=== PATIENT | male | born 1945 | race Caucasian/White ===

== ENCOUNTER → 2018-10-28 17:14 | Outpatient (REF) | payer MEDICARE, MEDICAID, SELFPAY ==
[2018-10-28 17:38] LABS: Alanine Aminotransferase 42 IU/L (21-72); Aspartate Aminotransferase 32 IU/L (17-59); Blood Urea Nitrogen 36 mg/dL (9-20); Estimated Glomerular Filt Rate > 60.0 mL/min (>60)
== END ==
LOC: LAB 17:14
PROVIDERS: Family Provider Family Medicine; PCP Nurse Practitioner; Visit Provider Physician Assistant Medical
DX: B35.3 Tinea pedis (principal); M35.4 Diffuse (eosinophilic) fasciitis
CPT/HCPCS: 82565; 84450; 84460; 84520

== ENCOUNTER → 2018-11-10 10:28 | Outpatient (CLI) | payer MEDICARE, MEDICAID, SELFPAY ==
[2018-11-10 12:36] LABS: Alanine Aminotransferase 43 IU/L (21-72); Aspartate Aminotransferase 28 IU/L (17-59); BUN Creatinine Ratio 31.1 (6-22); Blood Urea Nitrogen 28 mg/dL (9-20); Estimated Glomerular Filt Rate > 60.0 mL/min (>60)
== END ==
PROVIDERS: Family Provider Internal Medicine; PCP Internal Medicine; Visit Provider Physician Assistant Medical
DX: B35.3 Tinea pedis (principal); B35.2 Tinea manuum
CPT/HCPCS: 36415; 82565; 84450; 84460; 84520

== ENCOUNTER → 2020-02-08 14:56 | Outpatient (ROUT) | payer MEDICARE, MEDICAID, SELFPAY ==
[2020-02-08 14:58] LABS: Bacteria Urine None Seen; RBC Urine None Seen (0-5/HPF); WBC Urine None Seen (0-5/HPF)
[2020-02-08 15:51] LABS: Appearance Urine UA CLEAR; Bilirubin Urine UA NEGATIVE (NEGATIVE); Color Urine UA YELLOW; Glucose Urine UA NEGATIVE (Negative); Ketones Urine UA NEGATIVE (NEGATIVE); Leukocyte Esterase Urine UA NEGATIVE (NEGATIVE); Nitrite Urine UA NEGATIVE (Negative); Occult Blood Urine UA NEGATIVE (Negative); Protein Urine UA NEGATIVE (Negative); Specific Gravity Urine UA <=1.005 (1.000-1.035); Urobilinogen Urine UA 0.2 E.U./dL (0.2)
[2020-02-08 16:08] LABS: Culture Indicated Urine Cult Not Indicated; Urine Comments Microscopic Normal
== END ==
PROVIDERS: Visit Provider Internal Medicine
DX: N39.0 Urinary tract infection, site not specified (principal)
CPT/HCPCS: 81001

== ENCOUNTER → 2020-02-17 15:13 | Outpatient (CLI) | payer MEDICARE, MEDICAID, SELFPAY ==
[2020-02-17 16:31] LABS: Alanine Aminotransferase 17 IU/L (<50); Albumin 4.4 g/dL (3.5-5.0); Albumin Globulin Ratio 1.5 (1.0-2.8); Alkaline Phosphatase 83 U/L (38-126); Aspartate Aminotransferase 26 IU/L (17-59); BUN Creatinine Ratio 33.3 (6-22); Bilirubin Total 0.4 mg/dL (0.2-1.3); Blood Urea Nitrogen 31 mg/dL (9-20); Calcium 9.8 mg/dL (8.4-10.2); Carbon Dioxide 29 mmol/L (22-32); Chloride 106 mmol/L (98-107); Estimated Glomerular Filt Rate > 60.0 mL/min (>60); Glucose 94 mg/dL (80-110); HEMOLYSIS < 15 (0-50); Potassium 4.5 mmol/L (3.4-5.1); Sodium 142 mmol/L (137-145); Total Protein 7.4 g/dL (6.3-8.2)
[2020-02-17 18:28] LABS: Free T4, Direct Thyroxine 0.96 ng/dL (0.78-2.19)
[2020-02-17 18:42] LABS: Thyroid Stimulating Hormone 2.85 uIU/mL (0.47-4.68)
[2020-02-18 06:38] LABS: Triiodothyronine T3 Total 80 ng/dL (71-180)
[2020-02-18 07:09] LABS: PSA Free % 18.8 % (.); PSA, Total 1.7 ng/mL (0.0-4.0)
== END ==
PROVIDERS: PCP Internal Medicine; Referring Provider Internal Medicine; Visit Provider Internal Medicine
DX: N40.1 Benign prostatic hyperplasia with lower urinary tract symptoms (principal); R49.0 Dysphonia
CPT/HCPCS: 36415; 80053; 84153; 84154; 84439; 84443; 84480

== ENCOUNTER → 2020-10-06 07:48 | Outpatient (CLI) | payer MEDICARE, MEDICAID, SELFPAY ==
[2020-10-06] MEDS: COVID-19 VACC #1, MRNA(MOD) 100 MCG/0.5 ML VIAL IM (07:54)
== END ==
PROVIDERS: PCP Internal Medicine; Visit Provider Internal Medicine
DX: Z23 Encounter for immunization (principal)
CPT/HCPCS: 0011A; 91301

== ENCOUNTER → 2020-11-03 07:59 | Outpatient (CLI) | payer MEDICARE, MEDICAID, SELFPAY ==
[2020-11-03] MEDS: COVID-19 VACC #2, MRNA(MOD) 100 MCG/0.5 ML VIAL IM (08:07)
== END ==
PROVIDERS: PCP Internal Medicine; Visit Provider Internal Medicine
DX: Z23 Encounter for immunization (principal)
CPT/HCPCS: 0012A; 91301

== ENCOUNTER 2021-12-17 09:09 | Day surgery (SDC) | payer MEDICARE, SELFPAY ==
--- NOTE | 2021-12-17 | PATH_ITS ---
[facility] Accession Number: [id number] . 01 Material submitted: . PART A: colon - TRANSVERSE COLON POLYP X2 PART B: colon - DESCENDING COLON POLYPS X3 AND LEFT COLON PART C: colon - SIGMOID COLON POLYP 25CM . 02 Diagnosis: A. Transverse Colon Polyps, Biopsies: Fragments of tubular adenoma (two polyps removed). . B. Descending and Left Colon Polyps, Biopsies: Fragments of tubular adenoma (three polyps removed). . C. Sigmoid Colon Polyp at 25 cm, Polypectomy: Tubulovillous adenoma. Negative for high-grade dysplasia or malignancy. The polypectomy appears complete. V 12/19/2021 1041 Local . 02 Electronically signed: . Azar Lima MD, PhD, Pathologist NPI- [id number] . 01 Gross description: . Part A: TRANSVERSE COLON POLYP X2: Received in formalin are multiple fragment(s) of patino, soft tissue measuring 0.1 x 0.1 x 0.1 cm to 0.3 x 0.3 x 0.2 cm submitted entirely in 1 cassette(s) Part B: DESCENDING COLON POLYPS X3 AND LEFT COLON: Received in formalin are multiple fragment(s) of patino, soft tissue measuring 0.1 x 0.1 x 0.1 cm to 0.6 x 0.5 x 0.4 cm submitted entirely in 1 cassette(s) Part C: SIGMOID COLON POLYP 25CM: Received in formalin is 1 fragment of patino soft tissue measuring 1.0 x 1.0 x 1.0 cm. Specimen is sectioned and submitted in its entirety in 1 cassette. /SOPHY 12/18/20212025 Local . 02 Pathologist provided ICD-10: D12.3, D12.4, D12.5 . 02 CPT . 178781, 484462, 601003 Performed at: 01 [facility] [address] [id number] MD Jay Vázquez MD Phone: [phone] Performed at: 02 [facility] [address] [place], [place] [id number] MD Jil Landrum MD Phone: [phone]
[2021-12-17 10:29] VITALS: BP 126/78; PULSE 73; RESP 12; TEMP 36.6; O2SAT 99; BMI 19.8
[2021-12-17] MEDS: SODIUM CHLORIDE 0.9% 1,000 ML 84 ML IV (10:30)
--- NOTE | 2021-12-17 11:09 | PM.HP.1 ---
History of Present Illness History of Present Illness Date Patient Seen: 12/17/21 Time Patient Seen: 11:10 Chief complaint: SDC Narrative: 76-year-old who presents for colon cancer screening. He denies any specific GI symptoms. Patient History Medical History Skin cancer (2009) Surgical History No history of previous surgery (12/07/15) Family & Social History Family History Mother Cancer Hypertension Sister Cancer Grandfather Cancer Grandmother Mental health problem Grandfather Heart disease Social History: household members none Tobacco & Substance use: Smoking Status Never smoker alcohol intake current alcohol intake frequency 0-2 drinks per day Substance Use Type does not use Meds Home Medications and Allergies Home Medications Medication Instructions Recorded Confirmed Type fluorouracil 5 % topical cream 5 % TOPICAL BID #40 gm 01/25/13 12/17/21 Rx (Efudex) Allergies Allergy/AdvReac Type Severity Reaction Status Date / Time No Known Drug Allergies Allergy Verified 12/17/21 10:26 Review of Systems Review of Systems ROS: Yes All systems reviewed with the patient and are negative except as otherwise documented Exam Vital Signs (past 8 hours): - 12/17/21 10:29 Temperature 97.9 F Pulse Rate 73 Respiratory Rate 12 Blood Pressure 126/78 Pulse Oximetry 99 Oxygen Delivery Method Room Air Const General: cooperative and comfortable Orientation: alert HENMT Head: normocephalic Ears: external ears normal Nose: external nose normal Face and sinus: normal facial exam Mouth: oral mucosae normal Eyes General: appearance normal, both eyes and all related structures Neck Neck: normal visual inspection Chest Chest: normal inspection of the chest Resp Effort & Inspection: normal respiratory effort Cardio Rate: regular rate GI Inspection: normal to inspection Skin General: no rashes or lesions noted and No jaundice Neuro General: patient alert and moves all extremities Cognition: normal cognition Speech: speech normal Extrem General: no pedal edema Psych Appearance: grossly normal Assessment & Plan Assessment & Plan narrative: 76-year-old male reporting for colon cancer screening. Colonoscopy is planned for today. Time Spent With Patient Critical Care time: I spent a total of [] minutes of critical care time on this patient's care today; this time is exclusive of procedural time.
--- NOTE | 2021-12-17 11:11 | PM.PREOP ---
Pre-operative Note COVID-19 COVID-19 status: Negative Result date/Date tested (Pos, Neg/Pending): 12/17/21 Criteria for continued procedure: Possibility delay results in more complex future surgery or treatment Interval Note History & Physical reviewed/Exam performed by Physician: Yes Changes to H&P: No ASA Class (for procedural sedation): II
--- NOTE | 2021-12-17 12:27 | SUR.OPER ---
CECUM AT 1220
--- NOTE | 2021-12-17 12:49 | PM.OP.COLON ---
Operative Date/Time/Diagnoses Date of procedure: 12/17/21 Time of procedure: 12:49 Pre-op diagnosis: Colon cancer screening Post-op diagnosis: same Procedure & Clinicians Study performed: Colonoscopy with hot snare polypectomy Same procedure as scheduled: Yes Indications: Colon cancer screening Surgeon: Pankaj Ye Procedure Notes SCOAP/Timeout: Done Procedure in detail: After the risks and benefits were explained, written and verbal informed consent was obtained. The patient was brought into the procedure room and placed into the left lateral decubitus position. Please see nurse rn surgical pcu notes for sedation details. Digital rectal examination was accomplished. The scope was introduced into the patient and advanced under direct visualization to the cecum as identified by the appendiceal orifice and ileocecal valve. The scope was slowly withdrawn to carefully examine the mucosa for any defects or lesions. Comprehensive imaging was accomplished throughout the rectum including the dentate line. The colon was decompressed, the scope was then removed from the patient who tolerated the procedure well. Procedure time was prolonged secondary to the number of polyps encountered today. Twenty-two modifier is requested. Pediatric colonoscope Bowel prep adequate Scope withdrawal time: 26 minutes Sedation minutes: 42 Complications: none Impression: Patient had some diverticulosis noted in the sigmoid. Grade 2 internal hemorrhoids were noted on direct views. In the transverse colon there were [address] of hot snare polypectomy ranging in size from 6 mm to 9 mm. These were typically sessile. In the left colon including 1 from the descending and 3 from the sigmoid 4 more polyps were removed by way of hot snare. These ranged in size from 6 mm to 9 mm. In the sigmoid colon at about 25 cm from the anal verge there was a 20 mm pedunculated polyp. This was successfully removed with hot snare. There was no post polypectomy hemorrhage however a single Endo clip was deployed over the stalk to prophylax against any post polypectomy bleeding. Endoscopic diagnosis 1. Multiple colon polyps 2. Grade 2 hemorrhoids 3. Diverticulosis Post-procedure Plan for aftercare: 1. Await histopathology 2. Repeat colonoscopy is suggested for 3 years time unless an earlier evaluation is indicated post histology review. Disposition: PACU
[2021-12-17 12:52] VITALS: BP 104/59; PULSE 71; RESP 13; TEMP 36.2; O2SAT 100
[2021-12-17 12:57] VITALS: BP 99/69; PULSE 74; RESP 18; O2SAT 100
[2021-12-17 13:02] VITALS: BP 112/69; PULSE 70; RESP 14; O2SAT 99
[2021-12-17 13:07] VITALS: BP 109/67; PULSE 74; RESP 12; O2SAT 98
--- NOTE | 2021-12-17 14:05 | SUR.PHASEI ---
Several calls to pts prearranged ride with no answer, pt wants to walk home but Dr and Hospital policy will not allow. Taxi called per pts request, OK by Bill for pt to take a taxi home.
== END 2021-12-17 14:23 | disposition home or self-care (01) ==
PROVIDERS: PCP Internal Medicine; Referring Provider Internal Medicine Gastroenterology; Visit Provider Internal Medicine Gastroenterology
PROC: 0DJD8ZZ Inspection of Lower Intestinal Tract, Via Natural or Artificial Opening Endoscopic (ICD-10-PCS; CPT 45378; principal; 2021-12-17 11:30)
DX: R19.5 Other fecal abnormalities (principal); Z20.822 Contact with and (suspected) exposure to COVID-19; K64.1 Second degree hemorrhoids; K57.30 Diverticulosis of large intestine without perforation or abscess without bleeding; D12.3 Benign neoplasm of transverse colon; D12.4 Benign neoplasm of descending colon; D12.5 Benign neoplasm of sigmoid colon
CPT/HCPCS: 45385; 87635; C9803; J2704

== ENCOUNTER → 2021-12-17 09:09 | Outpatient (CLI) | payer MEDICARE, SELFPAY ==
[2021-12-17 09:41] LABS: COVID19 -Nasal RAPID Negative (Negative)
== END ==
PROVIDERS: PCP Internal Medicine; Referring Provider Family Medicine Sleep Medicine; Visit Provider Family Medicine Sleep Medicine
DX: Z20.822 Contact with and (suspected) exposure to COVID-19 (principal)
CPT/HCPCS: 87635

== ENCOUNTER 2024-04-26 18:35 | Observation (INO) | payer MEDICARE, SELFPAY ==
[2024-04-26] VITALS (10 sets, daily range): BP systolic 100–125; BP diastolic 60–77; PULSE 69–110; RESP 13–32; TEMP 36.4–36.8; O2SAT 97–99; BMI 20.5
--- NOTE | 2024-04-26 18:50 | DI.CT.S_ITS ---
PROCEDURE: CT CERVICAL SPINE WO CON INDICATIONS: injury TECHNIQUE: Noncontrast 3 mm thick sections acquired from the skull base to the T4 level. Sagittal and coronal reformats were then constructed. For radiation dose reduction, the following was used: automated exposure control, adjustment of mA and/or kV according to patient size. COMPARISON: None. FINDINGS: Image quality: Excellent. Bones: No fractures or dislocations. Visualized superior ribs are intact. Soft tissues: Prevertebral soft tissues are normal in thickness. No paravertebral hematomas. No apical pneumothoraces. IMPRESSION: No displaced fracture or traumatic subluxation. Dictated by: Francie Guy M.D. on 04/26/2024 at 19:55 Approved by: Francie Guy M.D. on 04/26/2024 at 19:55
--- NOTE | 2024-04-26 18:50 | DI.CT.S_ITS ---
PROCEDURE: CT HEAD/BRAIN WO CON INDICATIONS: head injury TECHNIQUE: Noncontrast 4.5 mm thick angled axial sections acquired from the foramen magnum to the vertex, with coronal and sagittal reformats. For radiation dose reduction, the following was used: automated exposure control, adjustment of mA and/or kV according to patient size. COMPARISON: None. FINDINGS: Image quality: Diagnostic. CSF spaces: Basal cisterns are patent. No extra-axial fluid collections. The ventricles are disproportionately prominent compared to gyral and sulcal atrophy. Brain: No intracranial bleeds or masses. There is cerebral volume loss for age, with resultant ventricular and sulcal prominence. There are periventricular and deep white matter chronic small vessel ischemic changes. There is intracranial internal carotid artery atherosclerosis. Skull and face: Calvarium and visualized facial bones appear intact, without suspicious lesions. Sinuses: Visualized sinuses and mastoids are clear. IMPRESSION: No acute intracranial pathology. Ventricular prominence disproportion to gyral and sulcal atrophy. This may represent a more central atrophy pattern versus normal pressure hydrocephalus. If the latter is appropriate with clinical symptoms, further evaluation with nuclear medicine scan may be obtained. Dictated by: Francie Guy M.D. on 04/26/2024 at 19:54 Approved by: Francie Guy M.D. on 04/26/2024 at 19:54
--- NOTE | 2024-04-26 18:51 | DI.RAD.S_ITS ---
PROCEDURE: XR CHEST 1V INDICATIONS: chest pain TECHNIQUE: One view of the chest was acquired. COMPARISON: [facility], CT, CT CHEST ABD PEL W CON, 04/26/2024, 19:11. FINDINGS: Surgical changes and devices: None. Lungs and pleura: Lungs are clear. No pleural effusions or pneumothorax. Mediastinum: Mediastinal contours appear normal. Heart size is normal. Bones and chest wall: No suspicious bony lesions. Overlying soft tissues appear unremarkable. IMPRESSION: No acute pulmonary process. Dictated by: Francie Guy M.D. on 04/26/2024 at 20:21 Approved by: Francie Guy M.D. on 04/26/2024 at 20:21
--- NOTE | 2024-04-26 18:51 | EKG_ITS ---
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
[2024-04-26 19:04] LABS: PTT Partial Thromboplastin Tim 30 SECONDS (25.1-36.5)
[2024-04-26 19:05] LABS: Alanine Aminotransferase 22 IU/L (<50); Albumin 4.6 g/dL (3.5-5.0); Albumin Globulin Ratio 1.6 (1.0-2.8); Alkaline Phosphatase 81 U/L (38-126); Aspartate Aminotransferase 28 IU/L (17-59); BUN Creatinine Ratio 28.6 (6-22); Bilirubin Total 0.8 mg/dL (0.2-1.3); Blood Urea Nitrogen 34 mg/dL (9-20); Calcium 9.8 mg/dL (8.4-10.2); Carbon Dioxide 26 mmol/L (22-32); Chloride 107 mmol/L (98-107); Creatine Kinase 153 U/L (55-170); Estimated Glomerular Filt Rate > 60 mL/min (>60); Globulin 2.8 g/dL (1.7-4.1); Glucose 109 mg/dL (80-110); HEMOLYSIS 16 (0-50); Magnesium 2.3 mg/dL (1.6-2.3); Potassium 4.1 mmol/L (3.4-5.1); Sodium 144 mmol/L (137-145); Total Protein 7.4 g/dL (6.3-8.2)
[2024-04-26 19:12] LABS: Add Manual Diff / Slide Review NO; Basophils Absolute Auto 100 /uL (0-100); Basophils Percent Auto 1.3 % (0-2); Eosinophils Absolute Auto 100 /uL (0-450); Eosinophils Percent Auto 0.9 % (2-4); Hematocrit 42.1 % (41-53); Hemoglobin 14.3 g/dL (13.5-17.5); Lymphocytes Absolute Auto 2000 /uL (1100-4500); Mean Corpuscular Hemoglobin 32.3 PG (26-34); Monocytes Absolute Auto 600 /uL (0-900); Monocytes Percent Auto 7.2 % (3-14); Neutrophils Absolute Auto 5900 /uL (1500-7000); Neutrophils Percent Auto 67.6 % (50-75); Platelet Count 261 X10^3/uL (150-400); Red Blood Cell Count 4.43 X10^6/uL (4.5-5.9); Red Cell Distribution Width 13.5 % (11.6-14.8); White Blood Cell Count 8.7 X10^3/uL (4.5-11.0)
[2024-04-26 19:17] LABS: NT-proBNP (BNP-Adult 18+) 129 pg/mL (<450); Troponin I < 0.012 ng/mL (0.01-0.034)
--- NOTE | 2024-04-26 19:17 | DI.CT.S_ITS ---
PROCEDURE: CT CHEST ABD PEL W CON INDICATIONS: syncope TECHNIQUE: After the administration of intravenous contrast, 5 mm thick sections acquired from the lung apices to the symphysis. 5 mm coronal and sagittal reformats were performed, with additional 7 mm MIP reformats through the lungs. For radiation dose reduction, the following was used: automated exposure control, adjustment of mA and/or kV according to patient size. COMPARISON: None. FINDINGS: Image quality: Excellent. CHEST: Lower Neck: No enlarged lymph nodes. Thyroid: No thyroid nodules which require sonographic follow up, per consensus guidelines. Axillae: No enlarged lymph nodes. Chest Wall: Unremarkable. Lungs and Pleura: No pneumothorax or pleural effusions. No consolidation or suspicious nodules. Heart: Heart size is normal. No pericardial effusion. Thoracic Vessels: The aorta and pulmonary arteries demonstrate normal size. Mediastinum and Ginger: No enlarged lymph nodes. Esophagus: No wall thickening. Mild hiatal hernia. ABDOMEN: Liver: Simple hepatic cyst.. Gallbladder: No radiopaque gallstones or wall thickening. Biliary ducts: No biliary dilation. Pancreas: No ductal dilation. Spleen: Size is within normal limits. Adrenal Glands: No adrenal nodules. Kidneys and Ureters: No hydronephrosis. No solid mass. No complex renal cystic lesion which requires follow up. Stomach and Bowel: Normal colonic caliber, without significant wall thickening. Diverticular present without inflammatory change. Peritoneum: No abnormal intraperitoneal fluid. No free air. Ventral Wall: No significant ventral hernia. Abdominal Nodes: No retroperitoneal or mesenteric adenopathy by size criteria. Vessels: Aorta and inferior vena cava are normal in size. PELVIS: Pelvic Organs: Unremarkable. Bladder: No bladder wall thickening, accounting for underdistention. Pelvic Nodes: No enlarged lymph nodes. Miscellaneous: No inguinal hernias are seen. Bones: No aggressive osseous abnormality. IMPRESSION: No acute intra-abdominal or pelvic process. Diverticulosis. Dictated by: Francie Guy M.D. on 04/26/2024 at 20:21 Approved by: Francie Guy M.D. on 04/26/2024 at 20:24
--- NOTE | 2024-04-26 19:26 | ED_ITS ---
HPI - General Adult General Chief complaint: Syncope Stated complaint: syncope Time Seen by Provider: 04/26/24 19:23 Source: patient and EMS Mode of arrival: EMS History of Present Illness HPI narrative: 79-year-old gentleman otherwise healthy was hiking [place] today had what he describes as a syncopal episode did not have acute nausea, palpitations dyspnea prior to the event. He fell hit his head since then his had persistent vomiting, he has a laceration just top of his head, retrograde amnesia, drifts off as he is answering questions. Pupils are equal and reactive. He has not complaining of pain in his neck chest torso or abdomen. He notes that this is his 3rd episode of falling due to syncope or near-syncope while he has been climbing [place] in the last 12 months. He has had no other episodes of syncope, near-syncope, exertional dyspnea chest pain palpitations or TIA type symptoms Related Data Home Medications Medication Instructions Recorded Confirmed minoxidil 2.5 mg tablet 2.5 mg PO DAILY 04/26/24 04/26/24 Allergies Allergy/AdvReac Type Severity Reaction Status Date / Time No Known Drug Allergies Allergy Verified 12/17/21 10:26 Review of Systems Review of Systems ROS Unobtainable: Unobtainable due to mental status/LOC Patient History Medical History Skin cancer (2009) Surgical History No history of previous surgery (12/07/15) Family History Mother Cancer Hypertension Sister Cancer Grandfather Cancer Grandmother Mental health problem Grandfather Heart disease Social History household members: none Smoking Status: Never smoker alcohol intake: current Smoking Status: Never smoker alcohol intake frequency: 0-2 drinks per day Substance Use Type: does not use Exam Initial Vital Signs Initial Vital Signs: Vital Signs Temperature 97.6 F 04/26/24 18:49 Pulse Rate 82 04/26/24 18:49 Respiratory Rate 18 04/26/24 18:49 Blood Pressure 125/77 04/26/24 18:49 Pulse Oximetry 99 04/26/24 18:49 Oxygen Delivery Method Room Air 04/26/24 18:49 General: Pale, bandage over the scalp laceration with no other bleeding appreciated currently. GCS of 14 HEENT: Dry mucous membranes, normal sclera with reactive pupils, Neck: No obvious tenderness on palpation Respiratory: Lungs are clear to auscultation, no wheezing no rales no rhonchi. Full and symmetrical air movement Cardiac: Regular rate and rhythm no murmurs no bruits Abdomen: Soft, nontender, good bowel tones, no flank pain Skin: Pale, he has not diaphoretic no other significant abnormalities Neurologic: He is moving all extremities, retrograde amnesia is noted, he will drift off as he is speaking and with repeat stimulation can answer questions Extremities: No obvious extremity trauma Psych: Cooperative, confused Course Orders Ordered: ED Orders 04/26/24 18:30 Complete Blood Count AUTO DIFF Stat Comprehensive Metabolic Panel Stat Magnesium Stat NT-proBNP (BNP-Adult 18+) Stat PTT Partial Thromboplastin German Stat Prothrombin Time INR Stat Troponin & CK Cardiac Panel Stat 04/26/24 18:50 CT cervical spine wo con Stat CT head/brain wo con Stat 04/26/24 18:51 XR chest 1V Stat EKG-12 Lead Stat 04/26/24 19:17 CT chest abd pel w con Stat Discontinued Medications Ondansetron HCl (Ondansetron 4 Mg/2 Ml Inj) 4 mg IV NOW ONE Stop: 04/26/24 19:42 Last Admin: 04/26/24 20:01 Dose: 4 mg Documented By: EZEKIEL Ondansetron HCl (Ondansetron 4 Mg/2 Ml Inj) 4 mg IV NOW ONE Stop: 04/26/24 19:46 Last Admin: 04/26/24 21:41 Dose: Not Given Documented By: EZEKIEL Vital Signs Vital signs: Vital Signs - 8 hr 04/26/24 18:49 04/26/24 19:36 04/26/24 19:39 Temperature 97.6 F Pulse Rate 82 81 Respiratory Rate 18 Blood Pressure 125/77 105/60 Pulse Oximetry 99 97 Oxygen Delivery Method Room Air 04/26/24 19:49 04/26/24 19:49 04/26/24 20:00 Temperature Pulse Rate 86 Respiratory Rate 13 Blood Pressure 112/67 113/66 Pulse Oximetry Oxygen Delivery Method 04/26/24 20:00 04/26/24 20:30 04/26/24 20:30 Temperature Pulse Rate 81 82 Respiratory Rate 17 17 Blood Pressure 102/62 Pulse Oximetry Oxygen Delivery Method 04/26/24 21:01 04/26/24 21:03 04/26/24 21:03 Temperature Pulse Rate 110 H 84 Respiratory Rate 22 Blood Pressure 101/70 Pulse Oximetry 98 Oxygen Delivery Method Medical Decision Making Lab Data 04/26/24 18:30 04/26/24 18:30 Labs: Lab Results 04/26/24 Range/Units 18:30 WBC 8.7 (4.5-11.0) X10^3/uL RBC 4.43 L (4.5-5.9) X10^6/uL Hgb 14.3 (13.5-17.5) g/dL Hct 42.1 (41-53) % MCV 95.0 (80-100) fL MCH 32.3 (26-34) PG MCHC 34.0 (30-36) % RDW 13.5 (11.6-14.8) % Plt Count 261 (150-400) X10^3/uL Neut % (Auto) 67.6 (50-75) % Lymph % (Auto) 23.0 L (25-40) % [place] % (Auto) 7.2 (3-14) % Eos % (Auto) 0.9 L (2-4) % Baso % (Auto) 1.3 (0-2) % Neut # (Auto) 5900 (7558-7042) /uL Lymph # (Auto) 2000 (3429-9513) /uL [place] # (Auto) 600 (0-900) /uL Eos # (Auto) 100 (0-450) /uL Baso # (Auto) 100 (0-100) /uL PT 12.0 (9.4-12.5) SECONDS INR 1.0 (0.9-1.3) APTT 30 (25.1-36.5) SECONDS Sodium 144 (137-145) mmol/L Potassium 4.1 (3.4-5.1) mmol/L Chloride 107 (98-107) mmol/L Carbon Dioxide 26 (22-32) mmol/L BUN 34 H (9-20) mg/dL Creatinine 1.19 (0.66-1.25) mg/dL Estimated GFR > 60 (>60) mL/min BUN/Creatinine Ratio 28.6 H (6-22) Glucose 109 (80-110) mg/dL Calcium 9.8 (8.4-10.2) mg/dL Magnesium 2.3 (1.6-2.3) mg/dL Total Bilirubin 0.8 (0.2-1.3) mg/dL AST 28 (17-59) IU/L ALT 22 (<50) IU/L Alkaline Phosphatase 81 (38-126) U/L Total Creatine Kinase 153 (55-170) U/L Troponin I < 0.012 (0.01-0.034) ng/mL NT-Pro-B Natriuret Pep 129 (<450) pg/mL Total Protein 7.4 (6.3-8.2) g/dL Albumin 4.6 (3.5-5.0) g/dL Globulin 2.8 (1.7-4.1) g/dL Albumin/Globulin Ratio 1.6 (1.0-2.8) Imaging Data CT chest abdomen: Radiologist's Impression: PROCEDURE: CT CHEST ABD PEL W CON INDICATIONS: syncope TECHNIQUE: After the administration of intravenous contrast, 5 mm thick sections acquired from the lung apices to the symphysis. 5 mm coronal and sagittal reformats were performed, with additional 7 mm MIP reformats through the lungs. For radiation dose reduction, the following was used: automated exposure control, adjustment of mA and/or kV according to patient size. COMPARISON: None. FINDINGS: Image quality: Excellent. CHEST: Lower Neck: No enlarged lymph nodes. Thyroid: No thyroid nodules which require sonographic follow up, per consensus guidelines. Axillae: No enlarged lymph nodes. Chest Wall: Unremarkable. Lungs and Pleura: No pneumothorax or pleural effusions. No consolidation or suspicious nodules. Heart: Heart size is normal. No pericardial effusion. Thoracic Vessels: The aorta and pulmonary arteries demonstrate normal size. Mediastinum and Ginger: No enlarged lymph nodes. Esophagus: No wall thickening. Mild hiatal hernia. ABDOMEN: Liver: Simple hepatic cyst.. Gallbladder: No radiopaque gallstones or wall thickening. Biliary ducts: No biliary dilation. Pancreas: No ductal dilation. Spleen: Size is within normal limits. Adrenal Glands: No adrenal nodules. Kidneys and Ureters: No hydronephrosis. No solid mass. No complex renal cystic lesion which requires follow up. Stomach and Bowel: Normal colonic caliber, without significant wall thickening. Diverticular present without inflammatory change. Peritoneum: No abnormal intraperitoneal fluid. No free air. Ventral Wall: No significant ventral hernia. Abdominal Nodes: No retroperitoneal or mesenteric adenopathy by size criteria. Vessels: Aorta and inferior vena cava are normal in size. PELVIS: Pelvic Organs: Unremarkable. Bladder: No bladder wall thickening, accounting for underdistention. Pelvic Nodes: No enlarged lymph nodes. Miscellaneous: No inguinal hernias are seen. Bones: No aggressive osseous abnormality. IMPRESSION: No acute intra-abdominal or pelvic process. Diverticulosis. Dictated by: Francie Guy M.D. on 04/26/2024 at 20:21 MDM Narrative Medical decision making narrative: CC: Syncopal episode significant head injury GCS 14 Complicating co-morbidities: Healthy with no other medications Data collected from: patient Social determinants of health that may influence the patients condition: Patient was currently hiking up [place] at the time of his fall Differential considered: Intracranial hemorrhage, stroke, acute coronary event, cardiac arrhythmia, sequelae of trauma Exam documented above, pertinent findings include: Pale, GCS of 14, aside from the head laceration exam is benign he has significant distracting injuries On secondary evaluation, head is unwrapped, there is a minor abrasion to the top of his head that does not need suturing. Bleeding is controlled Lab Test results independently reviewed as above. Pertinent findings: CBC is unremarkable no acute anemia Chemistries are reassuring no acute renal failure Troponin is undetectable ProBNP is unremarkable Independently reviewed EKG: Sinus rhythm at a rate of 83, no acute ischemic changes Imaging studies independently reviewed: CT scan of the head does not show intracranial hemorrhage but he does have significant ventricular prominence. Possibility of normal pressure hydrocephalus is entertained. CT of the cervical spine is unaware CT scan of the chest abdomen and pelvis does not show significant abnormality Treatments: Ondansetron for recurrent vomiting Re-evaluations: Patient is re-evaluated prior to transfer the floor. He is much more alert. Not complaining of significant pain. Still having nausea and still vomiting Discussion: 79-year-old gentleman otherwise healthy currently on no medications with a syncopal episode while hiking [place] [employer]. He notes that he did eat and drink appropriately during the day. He does not describe chest pain, orthopnea, any prodromal type symptoms. With the syncopal episode he did hit his head is minor abrasion there was moderate amount of bleeding. Significant retrograde amnesia and persistent vomiting is appreciated. CT scan also shows very prominent ventricles however there was no additional sequelae of normal pressure hydrocephalus. Remainder of workup is unremarkable. Because of his age, the syncopal episode and the persistent vomiting with retrograde amnesia have reviewed his care with our general surgeon, Dr. Mosquera. Like to admit him for observation overnight for significant concussion after head injury secondary to fall. At this point there was no indication of acute coronary syndrome, congestive heart failure, infection, stroke or alternate explanation for the syncopal episode that led to the fall and the significant concussion without obvious intracranial hemorrhage. Transition orders are written Discharge Plan Departure Patient Disposition: Admitted As Inpatient Clinical Impression: Amnesia (retrograde) Syncope Qualifiers: Syncope type: unspecified Qualified Code(s): R55 - Syncope and collapse Concussion Qualifiers: Encounter type: initial encounter Loss of consciousness presence/duration: w ithout LOC Qualified Code(s): S06.0X0A - Concussion without loss of consciousness, initial encounter Admit Date/Time: 04/26/24 21:20 Admit Provider: Thomas Mosquera
--- NOTE | 2024-04-26 19:41 | PC.NURSE ---
Patient had episode of emesis while laying in bed [facility] C-Collar in place. Patient immediately sat up in bed able to clear secretions. Patient moved to a room with suction.
[2024-04-26] MEDS: ONDANSETRON 4 MG/2 ML INJ IV (20:01)
--- NOTE | 2024-04-26 21:46 | PC.NURSE ---
Pt states he is beginning to remember, Has had a few episodes of emesis. Last occurred at 2029, c-collar was cleared so patient could utilize emesis bag per Dr Garcias and negative C-Spine.
--- NOTE | 2024-04-26 23:06 | PC.NURSE ---
Addendum entered by Maine Persaud R.N. 04/27/24 06:45: at 0600, pt states feeling better, smiling while conversing with this nurse. No further nausea or vomited. Original Note: pt admitted from ER via stretcher, ambulated with staff assist from ER stretcher to his acute care bed. Pt alert and oriented with some confusion as to not remembering why he felt. He knows he is in the hospital. c\o minor headache 2\10, pt had an emesis episode of 150 undigested food. Declining anti nausea medication. pupils are sluggish but reactive. pt following commands.
[2024-04-26 23:16] LABS: Appearance Urine UA CLEAR; Bilirubin Urine UA NEGATIVE (NEGATIVE); Color Urine UA YELLOW; Glucose Urine UA NEGATIVE (Negative); Ketones Urine UA 2+ (NEGATIVE); Leukocyte Esterase Urine UA NEGATIVE (NEGATIVE); Nitrite Urine UA NEGATIVE (Negative); Occult Blood Urine UA NEGATIVE (Negative); Protein Urine UA NEGATIVE (Negative); Specific Gravity Urine UA 1.025 (1.000-1.035); Urobilinogen Urine UA 0.2 E.U./dL (0.2); pH Urine UA 5.5 (4.5-8.0)
[2024-04-26 23:28] LABS: Bacteria Urine Occasional (0-1); Culture Indicated Urine Cult Not Indicated; Hyaline Casts Urine 0-1/LPF; Mucus Urine 1+ (Negative); RBC Urine None Seen (0-5/HPF); Squamous Epithelial Cell Urine 0-1 /HPF (0-5/HPF); Urine Volume 10mL (spun); WBC Urine None Seen (0-5/HPF)
[2024-04-27 02:03] VITALS: BP 103/67; PULSE 94; RESP 17; TEMP 37.8; O2SAT 97
[2024-04-27 02:24] VITALS: TEMP 36.8
[2024-04-27 05:00] VITALS: BP 113/67; PULSE 89; RESP 16; TEMP 36.6; O2SAT 98
[2024-04-27 05:51] VITALS: BP 113/67; PULSE 89; RESP 16; TEMP 36.6; O2SAT 98
[2024-04-27 06:21] LABS: Add Manual Diff / Slide Review NO; Basophils Absolute Auto 0 /uL (0-100); Basophils Percent Auto 0.3 % (0-2); Eosinophils Absolute Auto 0 /uL (0-450); Hematocrit 38.9 % (41-53); Hemoglobin 13.1 g/dL (13.5-17.5); Lymphocytes Absolute Auto 700 /uL (1100-4500); Mean Corpuscular HGB Conc 33.6 % (30-36); Mean Corpuscular Volume 95.3 fL (80-100); Monocytes Absolute Auto 700 /uL (0-900); Monocytes Percent Auto 4.4 % (3-14); Neutrophils Absolute Auto 14900 /uL (1500-7000); Neutrophils Percent Auto 91.3 % (50-75); Platelet Count 202 X10^3/uL (150-400); Red Blood Cell Count 4.08 X10^6/uL (4.5-5.9); Red Cell Distribution Width 13.3 % (11.6-14.8); White Blood Cell Count 16.3 X10^3/uL (4.5-11.0)
[2024-04-27 06:30] LABS: Alanine Aminotransferase 17 IU/L (<50); Albumin 3.9 g/dL (3.5-5.0); Albumin Globulin Ratio 1.6 (1.0-2.8); Alkaline Phosphatase 53 U/L (38-126); Aspartate Aminotransferase 24 IU/L (17-59); BUN Creatinine Ratio 30.9 (6-22); Bilirubin Total 1.1 mg/dL (0.2-1.3); Blood Urea Nitrogen 30 mg/dL (9-20); Calcium 8.9 mg/dL (8.4-10.2); Carbon Dioxide 24 mmol/L (22-32); Chloride 108 mmol/L (98-107); Estimated Glomerular Filt Rate > 60 mL/min (>60); Globulin 2.4 g/dL (1.7-4.1); Glucose 114 mg/dL (80-110); HEMOLYSIS < 15 (0-50); Potassium 3.9 mmol/L (3.4-5.1); Sodium 141 mmol/L (137-145); Total Protein 6.3 g/dL (6.3-8.2)
[2024-04-27 06:41] LABS: Troponin I < 0.012 ng/mL (0.01-0.034)
[2024-04-27 08:00] VITALS: BP 96/62; PULSE 86; RESP 18; TEMP 36.8; O2SAT 98
[2024-04-27] MEDS: SODIUM CHLORIDE 0.9% FLUSH 10 ML IV (09:53)
--- NOTE | 2024-04-27 10:07 | PM.HP.1 ---
History of Present Illness History of Present Illness Date Patient Seen: 04/27/24 Time Patient Seen: 10:07 Chief complaint: syncope Narrative: Armando Trent is a 79-year-old man who came to the emergency department last night for falling. He was apparently hiking down from [facility] with a friend when he syncopized and fell striking the top of the head. CT scans showed no evidence of internal injury. He only remembers being picked up by the ambulance in the parking lot at the [facility]. The exact circumstances of the syncopal event are unknown. He did have a normal EKG emergency department. [facility] Medical History Skin cancer (2009) Surgical History No history of previous surgery (12/07/15) Family History Mother Cancer Hypertension Sister Cancer Grandfather Cancer Grandmother Mental health problem Grandfather Heart disease Social History household members: none Smoking Status: Never smoker alcohol intake: current Meds Home Medications and Allergies Home Medications Medication Instructions Recorded Confirmed Type minoxidil 2.5 mg tablet 2.5 mg PO DAILY 04/26/24 04/26/24 History Allergies Allergy/AdvReac Type Severity Reaction Status Date / Time No Known Drug Allergies Allergy Verified 12/17/21 10:26 Exam Vital Signs (past 8 hours): - 04/27/24 02:24 04/27/24 05:00 04/27/24 05:51 Temperature 98.2 F 98 F 98 F Pulse Rate 89 89 Respiratory Rate 16 16 Blood Pressure 113/67 113/67 Pulse Oximetry 98 98 Oxygen Flow Rate 0 0 04/27/24 08:00 Temperature 98.2 F Pulse Rate 86 Respiratory Rate 18 Blood Pressure 96/62 Pulse Oximetry 98 Oxygen Flow Rate Oxygen Delivery Method Room Air Oxygen Flow Rate 0 Narrative Exam Narrative: Superficial abrasion of the vertex of the scalp which is hemostatic Objective Labs 04/27/24 06:00 04/27/24 06:00 Labs: Laboratory Results - last 24 hr 04/26/24 04/26/24 04/27/24 18:30 23:05 06:00 WBC 8.7 16.3 H D RBC 4.43 L 4.08 L Hgb 14.3 13.1 L Hct 42.1 38.9 L MCV 95.0 95.3 MCH 32.3 32.0 MCHC 34.0 33.6 RDW 13.5 13.3 Plt Count 261 202 Neut % (Auto) 67.6 91.3 H D Lymph % (Auto) 23.0 L 4.0 L [place] % (Auto) 7.2 4.4 Eos % (Auto) 0.9 L 0.0 L Baso % (Auto) 1.3 0.3 Neut # (Auto) 5900 87118 H Lymph # (Auto) 2000 700 L [place] # (Auto) 600 700 Eos # (Auto) 100 0 Baso # (Auto) 100 0 PT 12.0 INR 1.0 APTT 30 Sodium 144 141 Potassium 4.1 3.9 Chloride 107 108 H Carbon Dioxide 26 24 BUN 34 H 30 H Creatinine 1.19 0.97 Estimated GFR > 60 > 60 BUN/Creatinine Ratio 28.6 H 30.9 H Glucose 109 114 H Calcium 9.8 8.9 Magnesium 2.3 Total Bilirubin 0.8 1.1 AST 28 24 ALT 22 17 Alkaline Phosphatase 81 53 Total Creatine Kinase 153 Troponin I < 0.012 < 0.012 NT-Pro-B Natriuret Pep 129 Total Protein 7.4 6.3 Albumin 4.6 3.9 Globulin 2.8 2.4 Albumin/Globulin Ratio 1.6 1.6 Urine Color Yellow Urine Appearance Clear Urine pH 5.5 Ur Specific [place] 1.025 Urine Protein Negative Urine Glucose (UA) Negative Urine Ketones 2+ H Urine Occult Blood Negative Urine Nitrate Negative Urine Bilirubin Negative Urine Urobilinogen 0.2 Ur Leukocyte Esterase Negative Urine RBC None seen Urine WBC None seen Ur Squamous Epith Cells 0-1 /hpf Urine Bacteria Occasional (0-1) Hyaline Casts 0-1/lpf Urine Mucus 1+ H Ur Culture Indicated? Cult not indicated Vol Urine Centrifuged 10ml (spun) Assessment & Plan Assessment and plan (1) Amnesia (retrograde): Status: Acute (2) Concussion: Qualifiers: Encounter type: initial encounter Loss of consciousness presence/duration: without LOC Qualified Code(s): S06.0X0A - Concussion without loss of consciousness, initial encounter Status: Acute Plan 79-year-old man with concussive symptoms after a syncopal fall Discharge home this afternoon He was instructed to follow up with his primary care doctor Zara jones Time-Based Coding :: [TOTAL MINUTES] spent with patient and on the chart (including review of chart, obtaining history, exam, reviewing outside data, placing orders, documenting exam and treatment plan, and counseling patient) on [DATE]. Quality VTE Deep Vein Thrombosis/Pulmonary Embolism Present on Admission: No
[2024-04-27 12:00] VITALS: BP 108/66; PULSE 73; RESP 16; TEMP 37.1; O2SAT 97
--- NOTE | 2024-04-27 12:07 | CM.DANOTE ---
Initial DCP Assessment Visit Note Reviewed EMR and team rounds for status updates. Met with pt at bedside to introduce self and role, pt was found to be alert/oriented and back to his cognitive baseline. Pt lives independently in his own home here in [place]. He plans to take a taxi back to his car, which is still parked at [place], later this afternoon. He has been medically cleared for d/c. Payor: [facility] Attending: Dr. Mosquera Pt is a 79 year-old M who presented to the ED via EMS after he fell and hit his head during a syncopal episode while hiking. He's had persistent vomiting since the fall, has a llaceration on top of his head and some residual amnesia. ED dx was for a significant retrograde concussion without intracranial hemorrhage. Pt was placed in OBS for continued monitoring, Dr. Mosquera was consulted, and CT imaging did not show any further abnormal findings. Pt feels that he did not eat enough food prior to taking this long hike, and combined with the humidity he feels this may have been the cause of the syncopal episode. 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 Discharge Planning/Care Management CM Discharge Assessment Start: 04/27/24 12:05 Freq: Status: Active Protocol: Document 04/27/24 12:05 DPL (Rec: 04/27/24 12:07 DPL [id number]) Discharge Planning Assessment Assigned [employer] Worker WARD Valero Advance Directives? Yes Advance Directives on File No History Provided By Patient,Medical Record Has Patient been admitted in last 30 No days? Prior Living Arrangements House Household Members none Type of transporation used prior to Drives own vehicle admit Independent with ADL's Yes Is patient alert and oriented? Yes Caregiver for Another No Comment No identified d/c needs at this time. Barriers to Discharge No Discharge Plan Home Transportation Arrangement Taxi Referrals Initiated None needed Whiteboard Updated in Patient Room with Yes name and ext. # of [employer] Worker Review Status In Process Please Provide Date Initial DC 04/27/24 Assessment Was Performed
--- NOTE | 2024-04-27 14:23 | PC.NURSE ---
Pt is dressed and ready for discharge home. IV has been removed. Pt has ordered a taxi to take him to his car. Discharge orders reviewed with Pt-discussed stroke education, concussion, encouraged fluid intake to prevent constipation or dehydration and discussed Pt following up as soon as available to evaluate cause of syncope. Pt denied further questions and was taken out via w/c by COMPACTOR DRIVER to Taxi with all belongings.
== END 2024-04-27 14:26 | disposition home or self-care (01) ==
LOC: ED 20:16 → AC 21:20
PROVIDERS: Admitting Provider Surgery; Emergency Provider Emergency Medicine; Visit Provider Surgery
DX: S06.0X0A Concussion without loss of consciousness, initial encounter (principal); S01.01XA Laceration without foreign body of scalp, initial encounter; W19.XXXA Unspecified fall, initial encounter; Z91.81 History of falling; Y93.01 Activity, walking, marching and hiking
CPT/HCPCS: 36415; 70450; 71045; 71260; 72125; 74177; 80053; 81001; 82550; 83735; 83880; 84484; 85025; 85610; 85730; 93005; 96374; 99284; G0378; J2405; Q9967